=== PATIENT | female | born 1945 | race Caucasian/White ===

== ENCOUNTER → 2018-05-22 | Outpatient (CLI) | payer OTHER ==
[~2018-05-22] MED LIST: AMITRIPTYLINE H10 M1 PO; ASPIRIN81 M2 PO; HYDROCHLOROTHIA25 M2 PO; LEXAPRO20 MG PO; NORCO 5-325 TA1 EACH PO; PREMARIN VAGI42.5 G1 TOP; REGLAN 5 MG TAB5 MG PO; TRANDOLAPRIL1 MG PO; ULTRAM 50MG TAB50 MG PO; VYTORIN 10-101 EACH PO
--- NOTE | 2018-05-22 11:36 | 2DMMODE ---
[facility] [place] [address] 2 D/M-MODE ECHOCARDIOGRAM Name: BROOKE GRACIA Room #: REG [facility]#: [id number] Admission: 05/22/18 Attend Phys: Mateus Robledo Discharge: Date of : 49 Date of Service: 05/22/18 1135 Report #: [id number] THIS REPORT FOR: //name// APPROVED REPORT Study performed: 05/22/2018 10:58:13 EXAM: Comprehensive 2D, Doppler, and color-flow Echocardiogram Patient Location: Out-Patient Status: routine BSA: 1.81 HR: 80 bpm BP: 118/78 mmHg Rhythm: RBBB Other Information Study Quality: Good Indications Pacemker 2D Dimensions RVDd: 34.01 mm IVSd: 9.64 (7-11mm) LVOT Diam: 20.28 (18-24mm) LVDd: 45.92 mm PWd: 10.16 (7-11mm) Ascending Ao: 39.58 (22-36mm) LVDs: 33.12 (25-40mm) Aortic Root: 31.25 mm Volumes Left Atrial Volume (Systole) Single Plane 4CH: 38.95 mL Single Plane 2CH: 42.06 mL LA ESV Index: 24.00 mL/m2 Aortic Valve AoV Peak Chris.: 1.72 m/s AO Peak Gr.: 11.83 mmHg LVOT Max P.32 mmHg LVOT Max V: 1.15 m/s VALDEMAR Vmax: 2.16 cm2 Mitral Valve E/A Ratio: 0.5 MV Decel. Time: 223.43 ms MV E Max Chris.: 0.44 m/s [facility] [address] [place] [address] 2 D/M-MODE ECHOCARDIOGRAM Name: BROOKE GRACIA Room #: [facility]#: [id number] Admission: 05/22/18 Attend Phys: Mateus Robledo Discharge: Date of : 49 Date of Service: 05/22/18 1135 Report #: [id number] A Chris.: 0.81 m/s MV PHT: 64.79 ms IVRT: 83.04 ms Pulmonary Valve PV Peak Chris.: 0.90 m/s PV Peak Gr.: 3.22 mmHg Pulmonary Vein P Vein S: 0.54 m/s P Vein A: 0.42 m/s P Vein D: 0.36 m/s P Vein A Dur.: 90.0 msec P Vein S/D Ratio: 1.50 Tricuspid Valve TR Peak Chris.: 2.25 m/s RAP Estimate: 5.00 mmHg TR Peak Gr.: 20.29 mmHg PA Pressure: 25.00 mmHg Left Ventricle The left ventricle is normal size. There is normal LV segmental wall motion. There is normal left ventricular wall thickness. Left ventricular systolic function is normal. LVEF is 55%. Discordant septal motion possibly from RV pacing. Mild diastolic dysfunction is present (impaired relaxation pattern). Right Ventricle The right ventricle is normal size. The right ventricular systolic function is normal. Atria The left atrium size is normal. The right atrium size is normal. Aortic Valve The aortic valve is mildly sclerotic. Mild aortic regurgitation. There is no aortic valvular stenosis. Mitral Valve The mitral valve is normal in structure. Mild to moderate mitral regurgitation. Tricuspid Valve The tricuspid valve is normal in structure. Mild tricuspid regurgitation. Estimated PAP is 25mmHg. Pulmonic Valve The pulmonary valve is normal in structure. Trace pulmonic [facility] [address] [place] [address] 2 D/M-MODE ECHOCARDIOGRAM Name: BROOKE GRACIA Room #: REG [facility]#: [id number] Admission: 05/22/18 Attend Phys: Mateus Robledo Discharge: Date of : 49 Date of Service: 05/22/18 1135 Report #: [id number] regurgitation. Great Vessels The aortic root is normal in size. 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 IVC is normal in size and collapses >50% with inspiration. Pericardium There is no pericardial effusion. <Conclusion> Left ventricular systolic function is normal. LVEF is 55%. Discordant septal motion possibly from RV pacing. Mild diastolic dysfunction The aortic valve is mildly sclerotic. Mild aortic regurgitation, no stenosis. The mitral valve is normal in structure. Mild to moderate mitral regurgitation. Mild tricuspid regurgitation. Estimated pulmonary artery pressure of 25mmHg. 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 There is no pericardial effusion. <ELECTRONICALLY SIGNED> By: Aaron Gutiérrez MD, [facility] 05/22/18 1135 1135 1135 Aaron Gutiérrez MD, FAC /INF
== END ==
LOC: CV 10:44
DX: I08.3 Combined rheumatic disorders of mitral, aortic and tricuspid valves (principal); Z95.0 Presence of cardiac pacemaker

== ENCOUNTER → 2019-05-28 | Outpatient (CLI) | payer OTHER | LOC: SJCVCIMAG 11:50 | DX: Z45.018 Encounter for adjustment and management of other part of cardiac pacemaker (principal); I08.3 Combined rheumatic disorders of mitral, aortic and tricuspid valves; I77.810 Thoracic aortic ectasia; I45.2 Bifascicular block; R94.31 Abnormal electrocardiogram [ECG] [EKG]; I44.2 Atrioventricular block, complete; I10 Essential (primary) hypertension; E78.5 Hyperlipidemia, unspecified; Z79.82 Long term (current) use of aspirin; Z79.899 Other long term (current) drug therapy ==

== ENCOUNTER → 2020-05-24 | Outpatient (CLI) | payer OTHER | LOC: SJCVC 13:36 | PROVIDERS: ATTEND Internal Medicine Cardiovascular Disease | DX: R94.31 Abnormal electrocardiogram [ECG] [EKG] (principal); I45.4 Nonspecific intraventricular block; R06.00 Dyspnea, unspecified; I47.1 Supraventricular tachycardia; I44.2 Atrioventricular block, complete; I10 Essential (primary) hypertension; E78.5 Hyperlipidemia, unspecified; Z95.0 Presence of cardiac pacemaker; Z79.82 Long term (current) use of aspirin; Z79.899 Other long term (current) drug therapy; Z98.890 Other specified postprocedural states; Z82.49 Family history of ischemic heart disease and other diseases of the circulatory system ==

== ENCOUNTER → 2020-06-30 | Outpatient (CLI) | payer OTHER | LOC: SJCVCIMAG 07:51 | PROVIDERS: ATTEND Internal Medicine Cardiovascular Disease | DX: I08.3 Combined rheumatic disorders of mitral, aortic and tricuspid valves (principal); I49.3 Ventricular premature depolarization; R42 Dizziness and giddiness; R11.0 Nausea; I44.7 Left bundle-branch block, unspecified; I10 Essential (primary) hypertension; R06.00 Dyspnea, unspecified; E78.5 Hyperlipidemia, unspecified; I45.9 Conduction disorder, unspecified; R06.02 Shortness of breath; R00.0 Tachycardia, unspecified; Z95.0 Presence of cardiac pacemaker; Z79.82 Long term (current) use of aspirin; Z79.899 Other long term (current) drug therapy ==